=== PATIENT | female | born 1980 | race Caucasian/White ===

== ENCOUNTER 2018-06-01 10:35 | Emergency (ER) | payer BC ==
[2018-06-01] MEDS: DIPHENHYDRAMINE 50 MG INJ IV (12:39)
[2018-06-01] MEDS: KETOROLAC 30 MG INJ IV (12:39)
[2018-06-01] MEDS: METOCLOPRAMIDE 10 MG INJ IV (12:39)
[2018-06-01] MEDS: SOD CHLORIDE 0.9% 500 ML IV (12:39)
== END 2018-06-01 13:30 | disposition home or self-care (01) ==
LOC: FTE 10:35
DX: R51 Headache (principal)
CPT/HCPCS: 70450; 81025; 96374; 96375; 99285-25